=== PATIENT | male | born 1950 | race Two or more races ===

== ENCOUNTER 2020-09-13 05:50 | Day surgery (SDC) | payer OTHER ==
[~2020-09-13 05:50] MED LIST: ADULT LOW DOSE81 M1 PO; ALTACE2.5 MG PO; FINASTERIDE5 MG PO; FORTAMET500 MG PO; SIMVAST PO; TOPROL XL25 M1 PO
== END 2020-09-13 16:20 | disposition home or self-care (01) ==
LOC: CIR.AMB 05:50
PROVIDERS: ATTEND Urology
DX: C67.8 Malignant neoplasm of overlapping sites of bladder (principal); Z20.822 Contact with and (suspected) exposure to COVID-19